=== PATIENT | female | born 1985 ===

== ENCOUNTER 2020-09-21 07:00 | Outpatient (CLI) | payer OTHER | END 2020-09-21 23:59 | disposition home or self-care (01) | LOC: LAB.R 07:00 | PROVIDERS: ATTEND Advanced Practice Midwife | DX: Z36.85 Encounter for antenatal screening for Streptococcus B (principal); O09.529 Supervision of elderly multigravida, unspecified trimester; Z3A.00 Weeks of gestation of pregnancy not specified | CPT/HCPCS: 87797 ==